=== PATIENT | male | born 1950 | race Caucasian/White ===

== ENCOUNTER 2024-01-07 04:28 | Day surgery (SDC) | payer OTHER, MEDICARE ==
[2024-01-04 13:44] VITALS: BMI 24.7
[2024-01-07 11:54] VITALS: TEMP 98
[2024-01-07 12:12] VITALS: RESP 18
[2024-01-07 12:44] VITALS: BP 107/58; PULSE 60
== END 2024-01-07 12:44 | disposition home or self-care (01) ==
LOC: JASU-ENDO 04:28
PROVIDERS: ATTEND Internal Medicine Gastroenterology
PROC: 0DB68ZX Excision of Stomach, Via Natural or Artificial Opening Endoscopic, Diagnostic (ICD-10-PCS; 2024-01-07)
PROC: 0DB58ZX Excision of Esophagus, Via Natural or Artificial Opening Endoscopic, Diagnostic (ICD-10-PCS; principal; 2024-01-07 12:00)
DX: K29.50 Unspecified chronic gastritis without bleeding (principal); K21.00 Gastro-esophageal reflux disease with esophagitis, without bleeding
CPT/HCPCS: 88305-TC; 88342-TC